=== PATIENT | male | born 1980 | race Caucasian/White ===

== ENCOUNTER 2017-12-15 21:10 | Emergency (ER) | payer OTHER ==
[2017-12-15 21:20] VITALS: BP 149/93
[2017-12-15] MEDS ORDERED: BUFFERED LIDOCAINE 10 ML SYRINGE ONE (21:34)
--- NOTE | 2017-12-15 21:47 | ED Physician Documentation ---
PD HPI UPPER EXT INJURY - Stated complaint Stated Complaint: R THUMB LAC - Chief complaint Chief Complaint: Wound - History obtained from History obtained from: Patient - History of Present Illness Location: Right, Finger, Other (THUMB) Type of injury: Laceration Timing - onset: Today Timing - details: Abrupt onset Severity Comments: moderate Improved by: Dressing Worsened by: Moving Associated symptoms: No: Weakness, Numbness, Tingling Contributing factors: No: Anticoagulated Similar symptoms before: No diagnosis Recently seen: Not recently seen Review of Systems Constitutional: denies: Fever Eyes: denies: Discharge Skin: reports: Laceration (s) Musculoskeletal: reports: Extremity pain. denies: Neck pain, Joint swelling Neurologic: denies: Numbness PD PAST MEDICAL HISTORY - Past Medical History Cardiovascular: None Respiratory: None Endocrine/Autoimmune: None GI: None : None HEENT: None Psych: None Musculoskeletal: Other Derm: None - Past Surgical History Past Surgical History: Yes General: Appendectomy Ortho: Other - Present Medications Home Medications: Ambulatory Orders Medication Instructions Recorded Confirmed No Known Home Medications 01/07/16 01/07/16 - Allergies Allergies/Adverse Reactions: Allergies Allergy/AdvReac Type Severity Reaction Status Date / Time No Known Drug Allergies Allergy Verified 12/15/17 21:16 - Social History Does the pt smoke?: Yes Smoking Status: Current every day smoker Does the pt drink ETOH?: No Does the pt have substance abuse?: No - Immunizations Immunizations are current?: Yes - POLST Patient has POLST: No PD ED PE NORMAL - General General: Alert and oriented X 3, No acute distress - HEENT HEENT: Atraumatic - Derm Derm: Other (laceration to right thumb 2 cm ) - Extremities Extremities: Normal ROM s pain - Neuro Neuro: Alert and oriented X 3, Normal speech PD ED PE EXPANDED - Extremities QUINCY UE/Hands Visual: 1 - laceration (The patient has irregular 2 cm laceration, there is no evidence of foreign body in the wound, there is no evidence of ligamentous or tendon laceration. The bleeding is currently controlled. The patient has full active range of motion of the hand and thumb and fingers. Normal sensation light touch. Normal cap refill. Normal radial pulse. No bony tenderness) Results - Vitals Vitals: Vital Signs - 24 hr 12/15/17 21:13 Temperature 36.3 C L Heart Rate 85 Respiratory 17 Rate Blood Pressure 149/93 H O2 Saturation 96 Oxygen O2 Source Room air Procedures - Laceration (location) Finger right Length in cm: 2 Wound type: Irregular Neurovascular status: Sensory intact, Motor intact, Vascular intact Tendon involvement: Tendon intact Anesthesia: Lidocaine 1% Wound Preparation: Irrigated copiously NS, Wound explored, To the base. No: FB identified, FB removed Skin layer closure: Nylon, Interrupted, Size #-0 - enter number (4) Other: Patient tolerated well, Tetanus UTD Complexity: Simple PD MEDICAL DECISION MAKING - ED course ED course: The patient's wound was closed using sutures, there is no evidence of foreign body or tendon involvement. The patient appears appropriate for discharge and ongoing outpatient management. I recommended having the sutures removed in 7-10 days. I discussed warning signs and recommended returning to the emergency department for any worsening or any concerns.t Departure - Departure Disposition: 01 Home, Self Care Clinical Impression: Thumb laceration Qualifiers: Encounter type: initial encounter Damage to nail status: without damage Foreign body presence: without foreign body Laterality: unspecified laterality Qualified Code(s): S61.019A - Laceration without foreign body of unspecified thumb without damage to nail, initial encounter Condition: Good Instructions: ED Laceration Hand Comments: Please have your sutures removed in 7-10 days. Please return to the emergency department for worsening symptoms or any concerns.
== END 2017-12-15 21:55 | disposition home or self-care (01) ==
LOC: ED 21:10
DX: S61.011A Laceration without foreign body of right thumb without damage to nail, initial encounter (principal); W26.8XXA Contact with other sharp object(s), not elsewhere classified, initial encounter; F17.200 Nicotine dependence, unspecified, uncomplicated
CPT/HCPCS: 12001; 99282

== ENCOUNTER 2018-04-03 18:46 | Emergency (ER) | payer OTHER ==
[2018-04-03] MEDS ORDERED: PROPARACAINE 0.5% OPHTH DROPS 15 ML EACHEYE STA (19:35)
[2018-04-03] MEDS ORDERED: ERYTHROMYCIN OPHTH OINT 1 GM TUBE TOP STA (19:52)
--- NOTE | 2018-04-03 19:54 | ED Physician Documentation ---
PD HPI OPHTHO - Stated complaint Stated Complaint: EYE PX - Chief complaint Chief Complaint: Heent - History obtained from History obtained from: Patient - History of Present Illness Timing - onset: Today Timing - details: Abrupt onset Severity Comments: mild Location: Right Quality / character: Itching Associated symptoms: FB sensation Contributing factors: No: Exposed to conjunctivitis, Recent URI, FB, UV light (welding etc), Chemical exposure, acid, Penetrating trauma, Irrigated JUICE TESTER, Wears glasses, Wears contacts Similar symptoms before: No diagnosis Recently seen: Not recently seen Review of Systems Constitutional: denies: Fever Eyes: reports: Irritation. denies: Loss of vision, Decreased vision, Photophobia, Discharge Ears: denies: Ear pain Nose: denies: Congestion Musculoskeletal: denies: Neck pain Immunocompromised: denies: Chemotherapy PD PAST MEDICAL HISTORY - Past Medical History Cardiovascular: None Respiratory: None Endocrine/Autoimmune: None GI: None : None HEENT: None Psych: None Musculoskeletal: Other Derm: None - Past Surgical History Past Surgical History: Yes General: Appendectomy Ortho: Other - Present Medications Home Medications: Ambulatory Orders Medication Instructions Recorded Confirmed No Known Home Medications 01/07/16 01/07/16 - Allergies Allergies/Adverse Reactions: Allergies Allergy/AdvReac Type Severity Reaction Status Date / Time No Known Drug Allergies Allergy Verified 04/03/18 18:54 - Social History Does the pt smoke?: Yes Smoking Status: Current every day smoker Does the pt drink ETOH?: No Does the pt have substance abuse?: No - Immunizations Immunizations are current?: Yes - POLST Patient has POLST: No PD ED PE NORMAL - General General: Alert and oriented X 3, No acute distress - HEENT HEENT: Atraumatic - Neuro Neuro: Alert and oriented X 3, Normal speech - Psych Psych: Normal affect PD ED PE EXPANDED - Eyes Eyes: PERRL, Normal accommodation, EOMI, Right eye (The patient has a small corneal abrasion, there is no evidence of a foreign body.), Normal eyelids, No eyelid FB (everted), Corneal abrasion. No: Eyelid injury, Eyelid swelling, Eyelid erythema, Eyelid embedded FB, Nl conjunctiva/sclera, Injected conj/sclera, Exudate, Conj/sclera FB, Corneal FB Results - Vitals Vitals: Vital Signs - 24 hr 04/03/18 18:53 Temperature 36.2 C L Heart Rate 92 Respiratory 20 Rate Blood Pressure 156/100 H O2 Saturation 93 Oxygen O2 Source Room air PD MEDICAL DECISION MAKING - ED course ED course: The patient will be treated as an outpatient for a corneal abrasion, the patient was given erythromycin ointment in the emergency department and [place]. I advised that he may need a referral to Ophthalmology if his symptoms are improving. The patient will return to the emergency department for any worsening or any concerns Departure - Departure Disposition: 01 Home, Self Care Clinical Impression: Corneal abrasion Qualifiers: Encounter type: initial encounter Laterality: unspecified laterality Qualified Code(s): S05.00XA - Injury of conjunctiva and corneal abrasion without foreign body, unspecified eye, initial encounter Condition: Good Instructions: ED Eye Injury Corneal Abrasion Follow-Up: MATTHEW Spears [Provider Group] - Within 1 week (If your symptoms not improving you may need a referral to ophthalmology for recheck) Comments: Please return to the emergency department for worsening symptoms or any concerns
[2018-04-03 20:01] VITALS: BP 140/96
== END 2018-04-03 20:00 | disposition home or self-care (01) ==
LOC: ED 18:46
DX: S05.00XA Injury of conjunctiva and corneal abrasion without foreign body, unspecified eye, initial encounter (principal); W22.8XXA Striking against or struck by other objects, initial encounter; Y93.84 Activity, sleeping; F17.200 Nicotine dependence, unspecified, uncomplicated
CPT/HCPCS: 99283; J3490

== ENCOUNTER 2018-05-20 06:00 | Day surgery (SDC) | payer OTHER ==
[2018-05-20] MEDS ORDERED: LACTATED RINGERS 1,000 ML IV ONE (06:55)
[2018-05-20] MEDS ORDERED: ceFAZolin 2 GM/50 ML 2 GM/50 ML BAG IV ONE (06:59)
--- NOTE | 2018-05-20 07:17 | ANESTHESIA ---
Pre-Anesthesia VS, & Labs - Diagnosis Left Knee meniscus tear, ACL Deficiency - Procedure Left knee arthroscopy, meniscus debridement. Revision ACL with possible bone grafting Vital Signs: Temp Pulse Resp BP Pulse Ox 36.2 C L 99 18 157/92 H 99 05/20/18 06:58 05/20/18 06:58 05/20/18 06:58 05/20/18 06:58 05/20/18 06:58 Height 5 ft 11 in Weight (kg) 127.01 kg Body Mass Index 38.3 - NPO >8 hours Home Medications and Allergies Home Medications: Ambulatory Orders Ibuprofen [Motrin] 600 mg PO Q6H PRN 05/17/18 Ibuprofen [Motrin] 600 mg PO Q6H PRN 05/17/18 Allergies/Adverse Reactions: Allergies Allergy/AdvReac Type Severity Reaction Status Date / Time No Known Drug Allergies Allergy Verified 05/17/18 10:17 Anes History & Medical History - Anesthetic History Anesthesia Complications: reports: Post-Operative Nausea/Vomiting - Medical History Cardiovascular: reports: None Pulmonary: reports: None Gastrointestinal: reports: None Urinary: reports: None Neuro: reports: None Musculoskeletal: reports: Other Endocrine/Autoimmune: reports: None Blood Disorders: reports: None Skin: reports: None Smoking Status: Current every day smoker (vapes) Psychosocial: reports: No issues indicated - Surgical History General: Appendectomy Orthopedic: ACL reconstruction, Other (right hand boxer fracture) Dermatologic: Other Exam General: Alert Dental: WNL Mouth Openin Fingerbreadth Neck Mobility: Normal Mallampati classification: II Thyromental Distance: 4-6 cm Respiratory: Lungs clear, Normal breath sounds, No respiratory distress, No accessory muscle use Cardiovascular: Regular rate, Normal S1, Normal S2, No murmurs Mental/Cognitive Status: Alert/Oriented X3, Normal for patient Plan Anesthesia Type: General, Other Consent for Procedure(s) Verified and Reviewed: Yes Code Status: Attempt Resuscitation ASA classification: 2-Mild systemic disease Is this case an emergency?: No
--- NOTE | 2018-05-20 07:30 | ANESTHESIA ---
Pre-Anesthesia VS, & Labs - Diagnosis L knee meniscus tear, ACL tear - Procedure L ACL reconstruction Vital Signs: Temp Pulse Resp BP Pulse Ox 36.2 C L 99 18 157/92 H 99 05/20/18 06:58 05/20/18 06:58 05/20/18 06:58 05/20/18 06:58 05/20/18 06:58 Height 5 ft 11 in Weight (kg) 127.01 kg Body Mass Index 38.3 - NPO >8 hours Home Medications and Allergies Home Medications: Ambulatory Orders Ibuprofen [Motrin] 600 mg PO Q6H PRN 05/17/18 Ibuprofen [Motrin] 600 mg PO Q6H PRN 05/17/18 Allergies/Adverse Reactions: Allergies Allergy/AdvReac Type Severity Reaction Status Date / Time No Known Drug Allergies Allergy Verified 05/17/18 10:17 Anes History & Medical History - Medical History Cardiovascular: reports: None Pulmonary: reports: None Gastrointestinal: reports: None Urinary: reports: None Musculoskeletal: reports: Other Endocrine/Autoimmune: reports: None Blood Disorders: reports: None Skin: reports: None Smoking Status: Current every day smoker - Surgical History General: Appendectomy Orthopedic: ACL reconstruction, Other Dermatologic: Other Exam General: Alert, Oriented x3, Cooperative Plan Anesthesia Type: General, Femoral Block Regional Block: Per Surgeon's request for Post Op pain control Consent for Procedure(s) Verified and Reviewed: Yes Code Status: Attempt Resuscitation ASA classification: 2-Mild systemic disease Is this case an emergency?: No
[2018-05-20] MEDS ORDERED: EPINEPHrine 1 MG/ML AMP ONE (07:35)
[2018-05-20] MEDS ORDERED: BUPIVACAINE 0.25% PF 10 ML VIAL ONE (07:35)
[2018-05-20] MEDS ORDERED: BUPIVACAINE 0.25% PF 10 ML VIAL SUBQ ONE ×2 (08:21)
[2018-05-20] MEDS ORDERED: MIDAZOLAM 2 MG/2 ML VIAL IVP ONE (08:30)
[2018-05-20] MEDS ORDERED: DEXAMETHASONE 4 MG/ML VIAL IVP ONE (08:30)
[2018-05-20] MEDS ORDERED: PROPOFOL 200 MG/20 ML VIAL IVP ONE (08:30)
[2018-05-20] MEDS ORDERED: fentaNYL 100 MCG/2 ML VIAL IVP ONE (08:30)
[2018-05-20] MEDS ORDERED: ROCURONIUM 50 MG/5 ML VIAL IVP ONE (08:30)
[2018-05-20] MEDS ORDERED: KETOROLAC 30 MG/ML VIAL IVP ONE (08:30)
[2018-05-20] MEDS ORDERED: ONDANSETRON 4 MG/2 ML VIAL IVP ONE (08:30)
[2018-05-20] MEDS ORDERED: LIDOCAINE-MPF 2% 5 ML VIAL IM ONE (08:30)
[2018-05-20] MEDS ORDERED: ONDANSETRON 4 MG/2 ML VIAL IVP PRN (09:17)
[2018-05-20] MEDS ORDERED: oxyCODONE 5 MG TABLET PO PRN (09:17)
--- NOTE | 2018-05-20 09:19 | OPERATIVE REPORT ---
Operative Report - General Procedure Date: 05/20/18 - Other Other Information/Narrative: Date of Surgery: 20 May 2018 Pre-Op Diagnosis: Left knee prior ACL reconstruction with questionable graft status, prior medial meniscus repair with re-tear or lack of healing Procedure: Left knee arthroscopy with medial meniscus debridement, lateral tibial plateau chondroplasty, medial plica excision, partial ACL graft debridement Postop Diagnosis: Left knee ACL graft intact, left knee medial meniscus tear, left knee tibial plateau cartilage lesion Primary Surgeon: Milan Alejandro Secondary Surgeon: None Complications: None Tourniquet Time: 43 EBL: 5 cc Indication For Surgery: This is a 37-year-old male who underwent left knee ACL reconstruction and medial meniscus repair in [place] in August 2016. He had incomplete physical therapy and never rehab the knee appropriately. He has questionable instability versus weakness from poor rehab as well as medial sided knee pain consistent with a meniscus injury. MRI showed meniscus tear with an intact ACL graft. The plan for surgery was to do a examination under anesthesia to determine if the ACL graft was intact, then perform a diagnostic arthroscopy to determine if the ACL graft was intact and perform meniscal debridement or other procedures as needed. If the graft was not intact I plan to drill tunnels and do a one stage reconstruction revision if possible. If not possible I would drill tunnels and placed bone graft.. The risks, benefits, and alternatives were discussed. Risks include pain, bleeding, infection, damage to nearby structures and cartilage, lack of symptom relief, need for further surgery, DVT, PE, stroke, and . Written consent was obtained. Examination Under Anesthesia: ROM equal to the contralateral side. Stable dial at 30 & 90 degrees. Stable to varus and valgus stressing at 0 & 30 degrees. 2A Rebecca. Pivot shift had a very mild glide that was equal to the contralateral side. No mechanical sensation Arthroscopic Findings: No loose bodies. Synovium showed a medial plica or postoperative scarring that was taken down. Patella cartilage grade 1-2 changes medially, lateral and central is intact. Trochlear cartilage grade 1 throughout. Medial femoral condyle cartilage grade 1-2 changes over the medial aspect and a large area. Medial tibial plateau cartilage grade 1 changes throughout, small areas of grade 2. Medial meniscus showed a parrot-beak type tear at the junction of the body in the posterior horn as well as a complex tear of the posterior horn of the large horizontal component, portions of this were unstable and were therefore removed. ACL was well attached to the lateral femoral condyle and in a good position, there was a small cyclops lesion which constituted less than 20% of the graft and was located anteriorly, this was debrided. PCL was intact. Lateral femoral condyle cartilage intact. Lateral tibial plateau cartilage grade 1 throughout with a small focal grade 3 lesion posteriorly under the plateau. Lateral meniscus roots were intact, there were no tears. Procedure in Detail: The patient was met in the pre-operative hold area on the day of the procedure. The operative extremity was signed and questions were answered. The patient was brought to the operating room and a general anesthetic was administered. Supine position was used and bony prominences were padded. An examination under anesthesia was performed. Standard prepping and draping was performed. A time out confirmed patient identification, laterality, procedure, allergies, antibiotics, and images. An Esmarch was used to exsanguinate the limb and the tourniquet was elevated to 250 mmHg. A standard diagnostic arthroscopy of the knee was performed through anterolateral and anteromedial portal sites. The anteromedial portal was created under direct visualization after localizing with a spinal needle. The findings can be found above. I then proceeded to use of biter and sucker shaver to debride the small portion of the ACL graft anteriorly that was not functional. I then interrogated the graft thoroughly and determined that it was well fixed. I then performed a anterior drawer under arthroscopic viewing which showed a good endpoint and good tautness of the graft. If anything the graft was slightly vertical but overall it appeared to be in good position and well fixed and functioning. I then used a combination of biters and sucker zafar to debride the unstable portions of the medial meniscus. The posterior horn had a complex type tear that had not healed there was a horizontal component. I debrided the inferior leaflet as well as the free edge back to a stable base. I used a probe and could no longer pull any portions of the meniscus into the joint. The inferior leaflet of the tear was debrided back to nearly the capsular junction. At the corner of the body and the posterior horn that was also debrided back nearly to the capsular junction because that is where the tear had stopped. I then used a shaver to debride the unstable cartilage from the lateral tibial plateau and did this back to a stable base. Final images were taken and all arthroscopic fluid and instruments were removed from the knee. The incisions were closed with nylon suture 20 cc of 0.25% Marcaine without epinephrine was injected near the portal sites. A sterile dressing and compression wrap was placed. The patient was awakened and tra nsferred to recovery in stable condition.
[2018-05-20 10:43] VITALS: BP 126/74
== END 2018-05-20 06:01 | disposition home or self-care (01) ==
LOC: SDS 06:00
PROVIDERS: ATTEND Orthopaedic Surgery
PROC: 0SBD4ZZ Excision of Left Knee Joint, Percutaneous Endoscopic Approach (ICD-10-PCS; principal; 2018-05-20 07:30)
DX: S83.242A Other tear of medial meniscus, current injury, left knee, initial encounter (principal); M23.222 Derangement of posterior horn of medial meniscus due to old tear or injury, left knee; F17.220 Nicotine dependence, chewing tobacco, uncomplicated
CPT/HCPCS: 29881; J0690; J7120

== ENCOUNTER 2021-11-10 19:23 | Emergency (ER) | payer OTHER ==
[2021-11-10 19:46] LABS: BASOPHILS % (AUTO) 0.5 %; EOSINOPHILS # (AUTO) 0.1 10^3/uL (0.0-0.7); EOSINOPHILS % (AUTO) 1.4 %; HCT - HEMATOCRIT 45.7 % (42.0-52.0); HGB - HEMOGLOBIN 15.8 g/dL (14.0-18.0); LYMPHOCYTES % (AUTO) 27.6 %; MEAN CORPUSCULAR HEMOGLOBIN 27.9 pg (27.0-31.0); MEAN CORPUSCULAR HGB CONC 34.6 g/dL (32.0-36.0); MEAN CORPUSCULAR VOLUME 80.6 fL (80.0-94.0); MEAN PLATELET VOLUME 10.3 fL (7.4-11.4); MONOCYTES # (AUTO) 0.4 10^3/uL (0.0-1.0); MONOCYTES % (AUTO) 5.5 %; NEUTROPHILS # (AUTO) 4.8 10^3/uL (1.5-6.6); NEUTROPHILS % (AUTO) 64.7 %; PLT - PLATELET COUNT 234 10^3/uL (130-450); RED BLOOD COUNT 5.67 10^6/uL (4.70-6.10); RED CELL DISTRIBUTION WIDTH 12.7 % (12.0-15.0); WHITE BLOOD COUNT 7.4 x10^3/uL (4.8-10.8)
[2021-11-10] MEDS ORDERED: HALOPERIDOL 5 MG/ML VIAL IVP STA (19:55)
[2021-11-10] MEDS ORDERED: KETOROLAC 15 MG/ML VIAL IVP STA (19:55)
[2021-11-10 19:59] LABS: ALBUMIN 5.2 g/dL (3.2-5.5); ALBUMIN/GLOBULIN RATIO 1.6 (1.0-2.2); BILIRUBIN,TOTAL 1.1 mg/dL (0.2-1.0); CALCIUM 10.1 mg/dL (8.5-10.3); CREATININE 1.2 mg/dL (0.6-1.2); POTASSIUM 2.9 mmol/L (3.5-5.0); TOTAL PROTEIN 8.5 g/dL (6.7-8.2)
--- NOTE | 2021-11-10 20:20 | ED Physician Documentation ---
PD HPI NVD - Stated complaint Stated Complaint: VOMITING - Chief complaint Chief Complaint: Abd Pain - History obtained from History obtained from: Patient - History of Present Illness Timing - onset: How many hours ago (2-3) Timing - duration: Hours Timing - details: Abrupt onset Pain level now: 8 Associated symptoms: Abdominal pain. 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 Denies h/o similar symptoms. Review of Systems Constitutional: denies: Fever, Chills Cardiac: reports: Reviewed and negative Respiratory: reports: Reviewed and negative GI: reports: Abdominal Pain, Nausea, Vomiting, Diarrhea. denies: Abdominal Swelling, Constipation : denies: Dysuria, Frequency Neurologic: denies: Headache PD PAST MEDICAL HISTORY - Past Medical History Past Medical History: Yes Cardiovascular: None Respiratory: None Neuro: None Endocrine/Autoimmune: None GI: None : None HEENT: None Psych: None Musculoskeletal: Other Derm: None - Past Surgical History Past Surgical History: Yes General: Appendectomy Ortho: Other - Present Medications Home Medications: Ambulatory Orders Medication Instructions Recorded Confirmed Ibuprofen [Motrin] 600 mg PO Q6H PRN 05/17/18 05/17/18 Omeprazole 40 mg PO DAILY #14 cap 11/10/21 Promethazine [Phenergan] 25 mg PO Q6H PRN #10 tab 11/10/21 - Allergies Allergies/Adverse Reactions: Allergies Allergy/AdvReac Type Severity Reaction Status Date / Time No Known Drug Allergies Allergy Verified 11/10/21 19:31 - Social History Does the pt smoke?: Yes Smoking Status: Current every day smoker Does the pt drink ETOH?: No Does the pt have substance abuse?: No - Immunizations Immunizations are current?: Yes - POLST Patient has POLST: No PD ED PE NORMAL - Vitals Vital signs reviewed: Yes - General General: Alert and oriented X 3, Well developed/nourished, Other (appears to be in waxing and waning discomfort during H+P) - Neck Neck: Supple, no meningeal sign - Cardiac Cardiac: RRR, No murmur - Respiratory Respiratory: No respiratory distress, Clear bilaterally - Abdomen Abdomen: Soft, Non distended, Other (mild TTP RUQ and epigastrium) - Derm Derm: Normal color, Other (mildly diaphoretic) - Extremities Extremities: No edema - Neuro Neuro: Alert and oriented X 3 Results - Vitals Vitals: Oxygen O2 Source Room air - EKG (time done) No standard instances Rate: Rate (enter#) (54) [place]: Normal Intervals: Normal CA, Wide QRS ((minimal) NSIVCD) QRS: Normal Ischemia: Normal ST segments - Labs Labs: Laboratory Tests 11/10/21 11/10/21 11/10/21 19:39 19:39 19:39 WBC 7.4 RBC 5.67 Hgb 15.8 Hct 45.7 MCV 80.6 MCH 27.9 MCHC 34.6 RDW 12.7 Plt Count 234 MPV 10.3 Neut # (Auto) 4.8 Lymph # (Auto) 2.0 Mower # (Auto) 0.4 Eos # (Auto) 0.1 Baso # (Auto) 0.0 Absolute Nucleated RBC 0.00 Nucleated RBC % 0.0 Sodium 136 Potassium 2.9 L Chloride 104 Carbon Dioxide 18 L Anion Gap 14.0 H BUN 10 Creatinine 1.2 Estimated GFR (MDRD) 67 L Glucose 131 H Calcium 10.1 Total Bilirubin 1.1 H AST 23 ALT 30 Alkaline Phosphatase 49 Total Protein 8.5 H Albumin 5.2 Globulin 3.3 Albumin/Globulin Ratio 1.6 Lipase 24 Ethyl Alcohol < 5.0 - Rads (name of study) RUQ US Radiology: Prelim report reviewed, See rad report PD MEDICAL DECISION MAKING - ED course Complexity details: reviewed results, re-evaluated patient, considered differential, d/w patient ED course: c/o few hours of abdominal pain with n/v. Denies heavy/regular alcohol use. Admits to occasional marijuana use. Denies h/o similar symptoms. He is given 1 liter NS IV along with haldol, toradol, zofran, and dilaudid. He is in NAD on reevaluation, results d/w patient and he reports adequate improvement in symptoms. Mild hypokalemia noted and he is advised to follow up with primary care provider for reevaluation of his symptoms as well as the hypokalemia. Results of his blood tests are otherwise unremarkable. RUQ US unremarkable although hepatic steatosis noted. Departure - Departure Disposition: Home, Self Care Clinical Impression: Vomiting and diarrhea, Hypokalemia Abdominal pain Qualifiers: Abdominal location: upper abdomen, unspecified Qualified Code(s): R10.10 - Upper abdominal pain, unspecified Condition: Good Instructions: ED Abdominal Pain Unkn Cause Male, ED Vomiting Diarrhea Nonspecific Ad Prescriptions: Omeprazole 40 mg PO DAILY #14 cap Promethazine [Phenergan] 25 mg PO Q6H PRN #10 tab PRN Reason: Nausea / Vomiting Comments: The cause of your symptoms is not apparent at this time. Your lab tests were without diagnostic results. Incidentally noted is a low potassium; this would not cause these symptoms, but can be a results of vomiting and/or diarrhea. Follow up with your primary care provider for reevaluation of the abdominal discomfort; they might also recommend recheck of the potassium level. The ultrasound did not show any abnormalities of the gallbladder; hepatic steatosis ("fatty liver") was noted, and you can follow up with your primary are provider about this to determine whether further tests are indicated. Prescriptions for an acid-blocking medication and an anti-nausea medication (phenergan) have been electronically submitted to [facility] pharmacy in [place]. Discharge Date/Time: 11/10/21 23:02
[2021-11-10] MEDS ORDERED: ONDANSETRON 4 MG/2 ML VIAL IVP STA ×2 (20:33→21:13)
[2021-11-10] MEDS ORDERED: HYDROmorphone 1 MG/ML CARPUJECT IVP STA (20:33)
[2021-11-10] MEDS ORDERED: SODIUM CHLORIDE 0.9% 1,000 ML IV STA (20:34)
[2021-11-10] MEDS ORDERED: POTASSIUM CHLOR 10 MEQ/100 ML 10 MEQ/100 ML BAG IV STA (21:26)
--- NOTE | 2021-11-10 22:04 | Ultrasound Report ---
PROCEDURE: Abdomen Limited INDICATIONS: abd. pain TECHNIQUE: Real-time focused scanning was performed of the abdomen, with image documentation. COMPARISON: FINDINGS: The visualized liver demonstrates increased echogenicity and coarse sonographic echotexture consisten t with fatty infiltration. Gallbladder demonstrates no stones, definite wall thickening, or pericholecystic fluid. No intra or extra hepatic biliary ductal dilatation. The pancreas was not well seen sonographically. Right kidney measures 10.3 cm. No hydronephrosis. IMPRESSION: 1. No evidence of cholelithiasis or cholecystitis. 2. Increased hepatic echogenicity suggestive of steatosis. Reviewed by: Jevon Hickey MD on 11/10/2021 10:03 PM PDT Approved by: Jevon Hickey MD on 11/10/2021 10:03 PM PDT Station ID: [id number]
[2021-11-10] MEDS ORDERED: PANTOPRAZOLE 40 MG TABLET PO STA (22:47)
[2021-11-10] MEDS ORDERED: PROMETHAZINE 25 MG TABLET PO STA (22:47)
[2021-11-10] MEDS ORDERED: oxyCODONE/ACET 5/325 Prepack 4 PO STA (22:47)
[2021-11-10 22:59] VITALS: BP 165/89
== END 2021-11-10 23:02 | disposition home or self-care (01) ==
LOC: ED 19:23
DX: R10.10 Upper abdominal pain, unspecified (principal); R11.2 Nausea with vomiting, unspecified; E87.6 Hypokalemia; F17.200 Nicotine dependence, unspecified, uncomplicated
CPT/HCPCS: 36415; 76705; 80053; 80320; 83690; 85025; 93005; 96361; 96365; 96375; 96376; 99283; 99285; A9270; J1170; Q0169

== ENCOUNTER 2022-04-08 18:03 | Emergency (ER) | payer OTHER ==
[2022-04-08 18:30] LABS: BASOPHILS % (AUTO) 0.3 %; EOSINOPHILS % (AUTO) 0.2 %; HCT - HEMATOCRIT 45.9 % (42.0-52.0); HGB - HEMOGLOBIN 16.2 g/dL (14.0-18.0); LYMPHOCYTES # (AUTO) 2.3 10^3/uL (1.5-3.5); LYMPHOCYTES % (AUTO) 22.1 %; MEAN CORPUSCULAR HEMOGLOBIN 28.2 pg (27.0-31.0); MEAN CORPUSCULAR HGB CONC 35.3 g/dL (32.0-36.0); MEAN PLATELET VOLUME 9.9 fL (7.4-11.4); MONOCYTES # (AUTO) 0.9 10^3/uL (0.0-1.0); MONOCYTES % (AUTO) 8.7 %; NEUTROPHILS # (AUTO) 7.2 10^3/uL (1.5-6.6); NEUTROPHILS % (AUTO) 68.4 %; PLT - PLATELET COUNT 338 10^3/uL (130-450); RED BLOOD COUNT 5.74 10^6/uL (4.70-6.10); RED CELL DISTRIBUTION WIDTH 12.8 % (12.0-15.0); WHITE BLOOD COUNT 10.6 x10^3/uL (4.8-10.8)
[2022-04-08 18:43] LABS: ALBUMIN 4.9 g/dL (3.2-5.5); ALBUMIN/GLOBULIN RATIO 1.5 (1.0-2.2); BILIRUBIN,TOTAL 1.3 mg/dL (0.2-1.0); CALCIUM 9.8 mg/dL (8.5-10.3); CREATININE 1.3 mg/dL (0.6-1.2); TOTAL PROTEIN 8.1 g/dL (6.7-8.2)
[2022-04-08] MEDS ORDERED: DROPERIDOL 5 MG/2 ML VIAL IVP STA (18:44)
[2022-04-08] MEDS ORDERED: SODIUM CHLORIDE 0.9% 1,000 ML IV STA (18:45)
[2022-04-08] MEDS ORDERED: ONDANSETRON 4 MG/2 ML VIAL IVP STA (18:47)
--- NOTE | 2022-04-08 18:47 | ED Physician Documentation ---
History of Present Illness - Stated complaint Stated Complaint: ABD PX,VOMIT - Chief complaint Chief Complaint: Abd Pain - Additonal information Additional information: 41-year-old male presents to the emergency department for evaluation of headache and nausea and vomiting. Patient is a reliable historian. He reports that 3 nights ago he had a mild headache that he attributed to be his typical migraine. He did not think much of it. He woke up Thursday morning felt fine but as soon as he began eating he had uncontrolled nausea and vomiting. Since then he has been unable to keep anything down. He often gets hot flashes before he is going to vomit. He does state that it feels better when he takes a shower. He is a daily cannabis user and began smoking pot after retiring from the [employer] in October. He does have a history of anxiety and depression as well as hypertension. Patient does have a previous surgical history of an appendectomy Review of Systems Constitutional: denies: Fever Nose: reports: Reviewed and negative Cardiac: reports: Reviewed and negative Respiratory: reports: Reviewed and negative GI: reports: Nausea, Vomiting. denies: Abdominal Pain : reports: Reviewed and negative Skin: reports: Reviewed and negative Musculoskeletal: reports: Reviewed and negative Neurologic: reports: Reviewed and negative PD PAST MEDICAL HISTORY - Past Medical History Cardiovascular: None Respiratory: None Neuro: None Endocrine/Autoimmune: None GI: None : None HEENT: None Psych: None Musculoskeletal: Other Derm: None - Past Surgical History Past Surgical History: Yes General: Appendectomy Ortho: Other - Present Medications Home Medications: Ambulatory Orders Medication Instructions Recorded Confirmed Ibuprofen [Motrin] 600 mg PO Q6H PRN 05/17/18 05/17/18 Omeprazole 40 mg PO DAILY #14 cap 11/10/21 Promethazine [Phenergan] 25 mg PO Q6H PRN #10 tab 11/10/21 Ondansetron Odt [Zofran] 4 mg TL Q6H PRN #10 tablet 04/08/22 - Allergies Allergies/Adverse Reactions: Allergies Allergy/AdvReac Type Severity Reaction Status Date / Time No Known Drug Allergies Allergy Verified 04/08/22 18:11 - Social History Does the pt smoke?: Yes Smoking Status: Current every day smoker Does the pt drink ETOH?: No Does the pt have substance abuse?: No - Immunizations Immunizations are current?: Yes - POLST Patient has POLST: No PD ED PE NORMAL - General General: Alert and oriented X 3, No acute distress - HEENT HEENT: PERRL - Neck Neck: Supple, no meningeal sign, No adenopathy - Cardiac Cardiac: RRR, No murmur - Respiratory Respiratory: No respiratory distress, Clear bilaterally - Abdomen Abdomen: Normal bowel sounds, Soft. No: Non tender (Mild generalized tenderness without guarding or rebound. 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 Results - Vitals Vitals: Vital Signs - 24 hr 04/08/22 04/08/22 04/08/22 18:12 18:28 19:30 Temperature 37.1 C Heart Rate 135 H 103 H 90 Respiratory 20 14 16 Rate Blood Pressure 133/97 H 142/90 H 140/93 H O2 Saturation 96 94 95 Oxygen O2 Source Room air - Labs Labs: Laboratory Tests 04/08/22 04/08/22 04/08/22 18:25 18:25 18:45 WBC 10.6 RBC 5.74 Hgb 16.2 Hct 45.9 MCV 80.0 MCH 28.2 MCHC 35.3 RDW 12.8 Plt Count 338 MPV 9.9 Neut # (Auto) 7.2 H Lymph # (Auto) 2.3 Traverse # (Auto) 0.9 Eos # (Auto) 0.0 Baso # (Auto) 0.0 Absolute Nucleated RBC 0.00 Nucleated RBC % 0.0 Sodium 134 L Potassium 3.0 L Chloride 98 L Carbon Dioxide 20 L Anion Gap 16.0 H BUN 17 Creatinine 1.3 H Estimated GFR (MDRD) 61 L Glucose 118 H Calcium 9.8 Total Bilirubin 1.3 H AST 22 ALT 36 Alkaline Phosphatase 56 Total Protein 8.1 Albumin 4.9 Globulin 3.2 Albumin/Globulin Ratio 1.5 Lipase 29 Urine Color DARK YELLOW Urine Clarity CLEAR Urine pH 6.0 Ur Specific Slater 1.020 Urine Protein TRACE Urine Glucose (UA) NEGATIVE Urine Ketones NEGATIVE Urine Occult Blood NEGATIVE Urine Nitrite NEGATIVE Urine Bilirubin NEGATIVE Urine Urobilinogen 0.2 (NORMAL) Ur Leukocyte Esterase NEGATIVE Ur Microscopic Review NOT INDICATED Urine Culture Comments NOT INDICATED PD Medical Decision Making - ED course Complexity details: reviewed results, considered differential, d/w patient ED course: 41-year-old male presents the emergency department for evaluation of uncontrolled nausea and vomiting for 2 days. He reports he had a mild headache on Thursday but woke up Thursday vomiting. He does endorse daily habitual cannabis use for the last few months since retiring from the [employer]. On exam no true significant abdominal tenderness was elicited. We did obtain a CBC and electrolytes. The most significant finding is that of hypokalemia per my interpretation. This is most likely due to gastrointestinal potassium loss. The patient endorsed that his symptoms were also associated with diaphoresis and improved when he took shower so he has been taking a lot of those. I suspect that given the symptomatology that this is most likely cannabis hyperemesis syndrome. Here in the emergency department I did give the patient a liter of IV fluids as well as an initial dose of IV Zofran and IV droperidol. On reevaluation he is no longer vomiting and is now tolerating sips of clear liquids. He did receive 40 mill equivalents of potassium orally for his hypokalemia. I offered and ordered a CT scan of the abdomen to rule out an acute surgical cause as the patient does have a known gastritis however the patient declined CT imaging today. He felt better with symptom control thus he will be discharged home with the usual emergent return precautions. I have asked him to abstain from cannabis use For at least a few weeks. Departure - Departure Disposition: 01 Home, Self Care Clinical Impression: Cannabis use disorder, Hypokalemia Nausea and vomiting Qualifiers: Vomiting type: unspecified Qualified Code(s): R11.2 - Nausea with vomiting, unspecified Condition: Stable Record reviewed to determine appropriate education?: Yes Prescriptions: Ondansetron Odt [Zofran] 4 mg TL Q6H PRN #10 tablet PRN Reason: Nausea / Vomiting Comments: Uriel he came to the emergency department today because you woke up and have had uncontrolled vomiting for a few days. Here in the emergency department we did obtain a CBC and electrolytes. The most significant finding is that your potassium levels are low. This is because you have been vomiting. Here in the emergency department we did give you some oral potassium as well as some IV fluids and a medication called droperidol. Droperidol is often used with cyclic vomiting. We often see cyclic vomiting and daily or habitual cannabis users. There is a condition called cannabis hyperemesis syndrome. I suspect you may have this as your symptoms seem to improve when you take a shower. I encourage you to discontinue use of cannabis for a few weeks to see if your symptoms improve. In the short-term I am sending a prescription for Zofran and nausea medicine to the [facility]. If you find that over the next 24 hours your vomiting returns, you have fevers sudden severe abdominal pain black or bloody stools then you should return immediately to the emergency department.
[2022-04-08 18:48] LABS: GLUCOSE, URINE (UA) NEGATIVE (NEGATIVE); KETONES,URINE (UA) NEGATIVE (NEGATIVE); LEUKOCYTE ESTERASE, URINE NEGATIVE (NEGATIVE); NITRITE,URINE NEGATIVE (NEGATIVE); OCCULT BLOOD,URINE NEGATIVE (NEGATIVE); PROTEIN,URINE TRACE mg/dL (NEGATIVE); UROBILINOGEN,URINE 0.2 (NORMAL) E.U./dL (NORMAL)
[2022-04-08 18:52] LABS: BILIRUBIN,URINE NEGATIVE (NEGATIVE); CLARITY,URINE CLEAR (CLEAR); ICTOTEST,URINE NEGATIVE
[2022-04-08] MEDS ORDERED: iohexoL-300 100 ML VIAL ONE (19:20)
[2022-04-08] MEDS ORDERED: POTASSIUM CHLORIDE 20 MEQ TABLET PO STA (19:32)
[2022-04-08 19:39] VITALS: BP 140/93
== END 2022-04-08 20:18 | disposition home or self-care (01) ==
LOC: ED 18:03
DX: R11.2 Nausea with vomiting, unspecified (principal); E87.6 Hypokalemia; F17.200 Nicotine dependence, unspecified, uncomplicated
CPT/HCPCS: 36415; 80053; 81003; 83690; 85025; 96361; 96374; 99284; A9270; 81001; 87086